=== PATIENT | female | born 1955 | race African-American/Black ===

== ENCOUNTER 2021-08-22 12:47 | Emergency (ER) | payer OTHER ==
[2021-08-22 13:06] VITALS: BP 161/82; PULSE 64; TEMP 98; BMI 28.8
[2021-08-22] MEDS ORDERED: KETOROLAC TROMETHAMINE 30 MG/1 ML VIAL IM ONE (13:32)
== END 2021-08-22 14:41 | disposition home or self-care (01) ==
LOC: JERFT 12:47
PROC: 3E023GC Introduction of Other Therapeutic Substance into Muscle, Percutaneous Approach (ICD-10-PCS; principal; 2021-08-22)
DX: S42.211A Unspecified displaced fracture of surgical neck of right humerus, initial encounter for closed fracture (principal); V00.211A Fall from ice-skates, initial encounter
CPT/HCPCS: 73030-TC-RT-FY; 73060-TC-RT-FY; 96372; 99284-25